=== PATIENT | female | born 1975 | race Caucasian/White ===

== ENCOUNTER 2020-09-09 14:53 | Outpatient (REF) | payer OTHER, MEDICARE, SELFPAY | END 2020-09-09 14:54 | disposition home or self-care (01) | LOC: HO.LAB 14:53 | PROVIDERS: PCP Internal Medicine; Visit Provider Obstetrics & Gynecology | DX: R35.0 Frequency of micturition (principal) | CPT/HCPCS: 81003; 87086 ==

== ENCOUNTER → 2020-11-06 12:48 | Outpatient (BNVA) | payer OTHER, MEDICARE, SELFPAY | PROVIDERS: PCP Internal Medicine; Visit Provider Advanced Practice Midwife ==

== ENCOUNTER 2021-01-29 08:38 | Outpatient (REF) | payer OTHER, MEDICARE, SELFPAY ==
--- NOTE | ~2021-01-29 | MM_ITS ---
EXAMINATION: MM SCREENING DIGITAL BREAST TOMOSYNTHESIS, BILATERAL CLINICAL INFORMATION: Screening. Asymptomatic. The lifetime risk of breast cancer based on the Tyrer-Cuzick Model is 15%. COMPARISON: Mammography: November 13, 2019 and studies dating back to September 23, 2011 TECHNIQUE: Digital breast tomosynthesis is performed in both the craniocaudal and mediolateral oblique views along with computer-aided detection (CAD). Synthesized 2D images are generated from the tomosynthesis. FINDINGS: There are scattered areas of fibroglandular density (ACR BI-RADS breast composition Category b). There are no significant masses, abnormal calcifications, or other abnormalities. MM/MM tomosynthesis screening BI IMPRESSION: There are no significant changes from prior study. ASSESSMENT: BI-RADS 1: Negative RECOMMENDATION: Routine annual mammography screening. This patient's information was entered into a reminder system with a target due date for their next mammogram.
== END 2021-01-29 08:39 | disposition home or self-care (01) ==
LOC: HO.MAMMO 08:38
PROVIDERS: Visit Provider Advanced Practice Midwife
DX: Z12.31 Encounter for screening mammogram for malignant neoplasm of breast (principal)
CPT/HCPCS: 77063; 77067

== ENCOUNTER 2021-06-17 10:43 | Outpatient (REF) | payer OTHER, MEDICARE, SELFPAY ==
[2021-06-17 13:49] LABS: MANUAL DIFF FLAG NO
[2021-06-17 14:05] LABS: Basophils Absolute Auto 0.1 X10*3/uL (0.0-0.2); Basophils Percent Auto 1.1 % (0-2); Eosinophils Absolute Auto 0.1 X10*3/uL (0.0-0.4); Eosinophils Percent Auto 1.9 % (0-4); Hematocrit 43.1 % (37-47); Hemoglobin 14.6 g/dl (12.0-16.0); Imm Gran Abs Auto 0.04 X10*3/uL (0.00-0.03); Imm Gran Pct Auto 0.6 % (0.0-0.4); Lymphocytes Absolute Auto 2.3 X10*3/uL (1.2-4.9); Mean Corpuscular HGB Conc 33.9 g/dl (31.0-35.0); Mean Corpuscular Hemoglobin 31.4 pg (27.0-33.0); Mean Corpuscular Volume 92.7 fL (80-98); Mean Platelet Volume 10.9 fL (9.4-12.3); Monocytes Absolute Auto 0.8 X10*3/uL (0.1-1.2); Monocytes Percent Auto 11.2 % (2-11); Neutrophils Absolute Auto 3.9 X10*3/uL (2.0-8.3); Neutrophils Percent Auto 54.2 % (45-73); Platelet Count 299 X10*3/uL (160-400); Red Blood Count 4.65 X10*6/uL (4.20-5.50); Red Cell Distribution Width 12.4 % (11.0-16.0); White Blood Count 7.3 X10*3/uL (4.8-10.8)
[2021-06-17 14:17] LABS: Alanine Aminotransferase 54 U/L (0-31); Albumin Level 4.4 g/dL (3.5-5.0); Alkaline Phosphatase 57 U/L (39-117); Anion Gap 12 (12-20); Aspartate Amino Transferase 30 U/L (5-31); Bilirubin Total 0.5 mg/dL (0.0-1.0); Blood Urea Nitrogen 13 mg/dL (9-16); Calcium 9.3 mg/dL (8.4-10.2); Carbon Dioxide 25 mmol/L (22-29); Chloride 108 mmol/L (96-108); Cholesterol 237 mg/dL; Estimated Glomerular Filt Rate > 60; Glucose Random 86 mg/dL (60-115); HDL Cholesterol 43 mg/dL; LDL Cholesterol Calculated 132 mg/dl; Potassium 4.3 mmol/L (3.3-5.1); Sodium 141 mmol/L (135-145); Total Protein 6.7 g/dL (6.5-8.0); Triglycerides 313 mg/dL
[2021-06-17 14:38] LABS: TSH reflex Free T4 0.55 uIU/mL (0.32-4.0)
[2021-06-17 15:08] LABS: Reflex LDLD? No
[2021-06-17 15:10] LABS: Folate > 20.0 ng/mL (> or = 4.0); Vitamin B12 1277 pg/mL (200-900)
== END 2021-06-17 10:44 | disposition home or self-care (01) ==
LOC: HO.HMGCLDS 10:43
PROVIDERS: PCP Internal Medicine; Visit Provider Psychiatry & Neurology Neurology
DX: G35 Multiple sclerosis (principal)
CPT/HCPCS: 36415; 80053; 80061; 82607; 82746; 84443; 85025

== ENCOUNTER → 2021-12-13 13:41 | Outpatient (BNVA) | payer OTHER, MEDICARE, SELFPAY | PROVIDERS: PCP Internal Medicine; Visit Provider Advanced Practice Midwife | DX: Z13.89 Encounter for screening for other disorder (principal) ==

== ENCOUNTER 2022-02-11 09:44 | Outpatient (REF) | payer OTHER, MEDICARE, SELFPAY ==
--- NOTE | ~2022-02-11 | MM_ITS ---
EXAMINATION: MM SCREENING DIGITAL BREAST TOMOSYNTHESIS, BILATERAL CLINICAL INFORMATION: Screening. Asymptomatic. COMPARISON: Mammography: January 29, 2021 and studies dating back to September 23, 2011 TECHNIQUE: Digital breast tomosynthesis is performed in both the craniocaudal and mediolateral oblique views along with computer-aided detection (CAD). Synthesized 2D images are generated from the tomosynthesis. FINDINGS: There are scattered areas of fibroglandular density (ACR BI-RADS breast composition Category b). There are no new significant masses, abnormal calcifications, or other abnormalities. There are 2 circumscribed somewhat lobular densities again seen within the lateral and central aspects of the right breast which are unchanged from study of October 12, 2018. MM/MM tomosynthesis screening BI IMPRESSION: There are no significant changes from prior study. ASSESSMENT: BI-RADS 2: Benign RECOMMENDATION: Routine annual mammography screening. This patient's information was entered into a reminder system with a target due date for their next mammogram.
== END 2022-02-11 09:45 | disposition home or self-care (01) ==
LOC: HO.MAMMO 09:44
PROVIDERS: Visit Provider Advanced Practice Midwife
DX: Z12.31 Encounter for screening mammogram for malignant neoplasm of breast (principal)
CPT/HCPCS: 77063; 77067

== ENCOUNTER 2023-04-14 13:40 | Outpatient (AMB) | payer OTHER, MEDICARE, SELFPAY ==
--- NOTE | 2023-04-14 13:44 | A.OFFVIS_ITS ---
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 ? vaginal wart The patient agreed to use of a medical laboratory specialist during this encounter. Scribed for TODD Vallejo by Latosha Garcia medical laboratory specialist, on 04/14/2023 at 2:15 pm EST Director Of Religious Life Required: No Information Interpreted: non-clinical & clinical Elementary School Teacher'S Aide: Elementary School Teacher'S Aide Present (Leanne KOHLI) Accompanied by: Self / Same As Patient Allergies latex [LATEX] Allergy (Intermediate, Verified 04/14/23 13:49) RASH interferon magaly-2a,recomb. Allergy (Unknown, Verified 04/14/23 13:49) Hives modafinil [From Provigil] Allergy (Unknown, Verified 04/14/23 13:49) UNKNOWN TAPE,CLOTH Allergy (Unknown, Uncoded 04/14/23 13:49) RASH Post menopausal: Yes HPI HPI Comments History of Present Illness Details She is a postmenopausal woman presenting for annual exam. She attempts to eat healthy and stay active. Currently sexually active with . Reports a vaginal lump recently. Has not had a menses in over 3 years. Admits to hot flashes. Takes Black Cohosh with relief. Denies vaginal itching and irritation. Last pap smear 2019. Last mammogram 02/11/22. [facility] Medical History Anxiety, generalized Multiple sclerosis Surgical History History of appendectomy History of tubal ligation Family History Father No problems noted. Mother No problems noted. Son No problems noted. Maternal Grandmother Breast cancer Social History Household Members: Spouse Housing: House Alcohol intake: never Patient Tobacco Use Status: Never used Tobacco Current occupational status: disabled Sexual orientation: Straight/Heterosexual Gender identity: Female Female Reproductive History Menstrual Age of Menarche: 12 Menopause type: natural Total pregnancies: 1 Full term: 1 Number of Living Children: 1 Date of last pap smear: 10/11/19 Date of Mammogram: 02/11/22 Review of Systems Const All systems reviewed & are unremarkable except as noted in HPI and below Physical Exam Vital Signs: Last Vital Signs BP 110/70 04/14/23 13:48 BMI result Body Mass Index 22.3 Const General: cooperative, healthy appearing, no acute distress, well developed and alert Orientation/consciousness: patient oriented x3 HEENT Head: Yes normal to inspection Eyes General: appearance normal, both eyes and all related structures Neck Neck: Yes normal visual inspection Thyroid: Thyroid normal Chest Chest palpation & inspection: normal inspection of the chest Breast/axilla inspection: normal inspection of the breasts (no puckering, d impling, peau de orange, retraction, discharge, masses) and Other (fungal rash under breasts- uses anti-fungal cream prn) Breast/axilla palpation: normal palpation of the breasts Resp Effort & Inspection: normal respiratory effort GI Inspection: Yes normal to inspection Palpation (GI): Soft to palpation Rectal Exam - Female: deferred General: Yes bladder normal to palpation External Female Exam: normal external appearance, normal appearance of the urethra and other (2 mm sebaceous gland cyst on left labia. skin tags x3 vulva/gluteal area) Speculum Exam - Vagina: normal appearance of the vagina, normal palpation and normal vaginal discharge Speculum Exam - Cervix: normal appearance of the cervix and normal palpation Bimanual exam- vagina & uterus: normal bimanual exam, normal palpation, uterine size normal, bladder normal to palpation and normal palpation Bimanual Exam- Adnexa, other: normal adnexae and no masses Skin General skin exam: no rashes or lesions noted Neuro General: patient oriented x3 Cognition (Neuro): normal cognition Extrem General: Yes normal to inspection Psych Attitude: cooperative Thought process: Normal thought process present Assessment & Plan Assessment & Plan (1) Encounter for well woman exam: Code(s): Z01.419 - Encounter for gynecological examination (general) (routine) without abnormal findings Plan: Discussed: Current recommendations for pap smears per ASCCP guidelines. Breast awareness and periodic self breast exams. Encouraged yearly mammograms. Maintaining a healthy lifestyle including a well balanced diet including Calcium and Vitamin D and routine exercise. Contact office with any PMB. Counseled on sebaceous glands. Encouraged patient portal. All of her questions and concerns were addressed to the best of my ability. RTO in one year for AG. Orders: Orders MM tomosynthesis screening BI Today Z12.31 - Encounter for screening mammogram for malignant neoplasm of breast Coding Level of Care Code Est Pt Prev Care 40-64y(34419) Diagnoses Encounter for well woman exam Z01.419
[2023-04-14 13:48] VITALS: BP 110/70; BMI 22.3
== END 2023-04-14 14:23 | disposition home or self-care (01) ==
LOC: HO.HWS 13:40
PROVIDERS: PCP Internal Medicine; Visit Provider Advanced Practice Midwife
DX: Z01.419 Encounter for gynecological examination (general) (routine) without abnormal findings (principal)
CPT/HCPCS: 99396

== ENCOUNTER → 2023-04-14 13:40 | Outpatient (BNVA) | payer OTHER, MEDICARE, SELFPAY | PROVIDERS: PCP Internal Medicine; Visit Provider Advanced Practice Midwife ==

== ENCOUNTER 2023-08-17 12:49 | Outpatient (REF) | payer OTHER, MEDICARE, SELFPAY ==
--- NOTE | ~2023-08-17 | MM_ITS ---
EXAMINATION: MM SCREENING DIGITAL BREAST TOMOSYNTHESIS, BILATERAL CLINICAL INFORMATION: Screening. Asymptomatic. COMPARISON: Mammography: 02/11/2022, 01/29/2021, 12/14/2019, 10/31/2018, 10/12/2018, 06/29/2016, targeted right breast ultrasound 11/28/2018. TECHNIQUE: Digital breast tomosynthesis is performed in both the craniocaudal and mediolateral oblique views along with computer-aided detection (CAD). Synthesized 2D images are generated from the tomosynthesis. An additional right MLO with better anterior compression was obtained. FINDINGS: There are scattered areas of fibroglandular density (ACR BI-RADS breast composition Category b). Per the technologist note, the patient has MS and involuntary movements. This caused blurring on the right MLO projections. There are stable oval circumscribed parenchymal nodules in the right breast retroareolar region and just inferior to the nipple line. These are unchanged and benign. There are no suspicious masses, suspicious grouped calcifications, or areas of architectural distortion in either breast. The parenchymal pattern is stable from prior exams. MM/MM tomosynthesis screening BI IMPRESSION: No mammographic evidence of malignancy. Somewhat motion limited. Stable benign findings. ASSESSMENT: BI-RADS BI-RADS 2 - Benign Findings RECOMMENDATION: Routine annual mammography screening. 1 year F/U This examination should not preclude the clinical evaluation of a suspicious palpable abnormality. This patient's information was entered into a reminder system with a target due date for their next mammogram.
== END 2023-08-17 12:50 | disposition home or self-care (01) ==
LOC: HO.MAMMO 12:49
PROVIDERS: Visit Provider Advanced Practice Midwife
DX: Z12.31 Encounter for screening mammogram for malignant neoplasm of breast (principal)
CPT/HCPCS: 77063; 77067

== ENCOUNTER → 2023-08-17 13:30 | Outpatient (BNV) | payer OTHER, MEDICARE, SELFPAY | PROVIDERS: Visit Provider Radiology Diagnostic Radiology | DX: Z12.31 Encounter for screening mammogram for malignant neoplasm of breast (principal) | CPT/HCPCS: 77063; 77067 ==

== ENCOUNTER 2024-03-20 10:09 | Outpatient (REF) | payer OTHER, MEDICARE, SELFPAY ==
[2024-03-20 13:10] LABS: MANUAL DIFF FLAG NO
[2024-03-20 13:25] LABS: Basophils Absolute Auto 0.2 X10*3/uL (0.0-0.2); Basophils Percent Auto 1.5 % (0-2); Eosinophils Absolute Auto 0.2 X10*3/uL (0.0-0.4); Eosinophils Percent Auto 1.6 % (0-4); Hematocrit 45.7 % (37.0-47.0); Hemoglobin 15.5 g/dl (12.0-16.0); Imm Gran Abs Auto 0.11 X10*3/uL (0.00-0.03); Lymphocytes Absolute Auto 2.9 X10*3/uL (1.2-4.9); Lymphocytes Percent Auto 27.2 % (20-40); Mean Corpuscular HGB Conc 33.9 g/dl (31.0-35.0); Mean Corpuscular Volume 94.4 fL (80.0-98.0); Mean Platelet Volume 10.3 fL (9.4-12.3); Monocytes Percent Auto 9.2 % (2-11); Neutrophils Absolute Auto 6.3 x10*3/uL (2.0-8.3); Neutrophils Percent Auto 59.5 % (45-73); Platelet Count 364 X10*3/uL (160-400); Red Blood Count 4.84 X10*6/uL (4.20-5.50); Red Cell Distribution Width 12.8 % (11.0-16.0); White Blood Count 10.5 X10*3/uL (4.8-10.8)
[2024-03-20 14:13] LABS: TSH reflex Free T4 1.61 uIU/mL (0.32-4.0)
[2024-03-20 14:14] LABS: Anion Gap 15 (12-20)
[2024-03-20 14:19] LABS: Alanine Aminotransferase 40 U/L (0-31); Albumin Level 4.5 g/dL (3.5-5.0); Alkaline Phosphatase 60 U/L (39-117); Aspartate Amino Transferase 24 U/L (5-31); Bilirubin Total 0.6 mg/dL (0.0-1.0); Blood Urea Nitrogen 16 mg/dL (9-16); Calcium 9.5 mg/dL (8.4-10.2); Carbon Dioxide 25 mmol/L (22-29); Chloride 105 mmol/L (96-108); Cholesterol 245 mg/dL (<200); Estimated Glomerular Filt Rate > 60; Glucose Random 89 mg/dL (60-115); HDL Cholesterol 49 mg/dL (>40); LDL Cholesterol Calculated 148 mg/dL (<100); Potassium 3.9 mmol/L (3.3-5.1); Sodium 141 mmol/L (135-145); Triglycerides 244 mg/dL (<150)
[2024-03-20 15:38] LABS: Reflex LDLD? No
== END 2024-03-20 10:10 | disposition home or self-care (01) ==
LOC: HO.HMGCLDS 10:09
PROVIDERS: PCP Internal Medicine; Visit Provider Psychiatry & Neurology Neurology
DX: G35 Multiple sclerosis (principal)
CPT/HCPCS: 36415; 80053; 80061; 84443; 85025

== ENCOUNTER 2024-09-16 11:22 | Outpatient (REF) | payer OTHER, MEDICARE, SELFPAY ==
--- NOTE | ~2024-09-16 | MM_ITS ---
EXAMINATION: MM SCREENING DIGITAL BREAST TOMOSYNTHESIS, BILATERAL CLINICAL INFORMATION: Screening. Asymptomatic. COMPARISON: Mammography: Comparison is made with available priors TECHNIQUE: Digital breast mammography with tomosynthesis is performed in both the craniocaudal and mediolateral oblique views along with computer-aided detection (CAD). FINDINGS: There are scattered areas of fibroglandular density (ACR BI-RADS breast composition Category b). Bilateral circumscribed oval masses are stable. There are no significant masses, abnormal calcifications, or other abnormalities. MM/MM tomosynthesis screening BI IMPRESSION: No mammographic evidence of malignancy. ASSESSMENT: BI-RADS BI-RADS 2 - Benign Findings RECOMMENDATION: Routine annual mammography screening. 1 year F/U This examination should not preclude the clinical evaluation of a suspicious palpable abnormality. This patient's information was entered into a reminder system with a target due date for their next mammogram. Electronically signed by: Shonna Webster DO 09/22/2024 05:57 PM FELICITA
--- OUTSIDE RECORDS SUMMARY | 2024-09-16 13:08 | XMS_ITS | Data Portability ---
Author Organization [place] - [facility], [address] Address [address] [place] [address] Assessment No assessment recorded. Plan of Treatment Reminders Order Date Submit Date Provider Last Modified By Organization Details Last Modified Time Details Appointments None recorded. Lab None recorded. Referral None recorded. Procedures None recorded. Surgeries None recorded. Imaging None recorded. Medication Orders Augmentin 875 mg-125 mg tablet 2023 024 [id number], [address], [place], [address], 12:39:08 Patient TargetsNo targets recorded. Patient Instructions Encounter Date Encounter Id Patient Instructions Last Modified By Organization Details Last Modified Time 05/29/2024 [id number] - Use the medications prescribed. - Decongestants if tolerated. - Recommend recheck if fever develops or no improvement in 7-10 days. - I recommend having your ear rechecked in in 2 weeks with your primary provider to verify infection has resolved. -.Use a cool mist humidifier in the room that you sleep to add moisture to the air, which should soothe the airways and help loosen any mucus that may be present. -Call 911 or proceed to nearest Emergency Department if you develop shortness of breath, chest pain, severe headache or other symptoms that concern you. Not available 05/29/2024 12:39:20 Reason for Referral None Reported. Medical Equipment None Reported. Allergies Allergen ID Allergen Name Allergen Category Reaction Reaction Severity Criticality Documentation Date Start Date Code Code System Note Provider Name and Address Organization Details Recorded Time 826192 Provigil medicatio n Not available Not available Not available 05/29/2024 47015 4 RxNorm Damaris Ngonijolly hickman [place] - [facility] 4 12:19:44 Medications Name Sig Start Date Stop Date Status Note LastModified by Organization Details LastModified Time Augmentin 875 mg-125 mg tablet Take 1 tablet every 12 hours by oral route for 7 days. 024 active Not Available Not Available Not Avai lable escitalopram 20 mg tablet TAKE 1 TABLET BY MOUTH EVERY DAY active Not Available Not Available No t Available Vitals Date Recorded Body height Body mass index (BMI) Body weight Respiratory rate Oxygen saturation Oxygen saturation in Arterial blood by Pulse oximetry Heart rate Provider Name and Address Organization Details Last Updated DateTime 4 165.1 cm 25 kg/m2 61697.8 6 g 18 /min 97 % 97 % 95 /min Damaris Dominguez [place] - [facility] 4 12:16:16 Social History Question Answer Notes LastModified by Organizat ion Details LastModified Time Tobacco Smoking Status Never Smoker Damaris hickman [place] - [facility] 05/29/2024 12:17:30 What Is Your Level Of Alcohol Consumption? None Information not available 05/29/2024 Have You Had A Flu Shot This Season? No Information not available 05/29/2024 If No, Would You Like A Flu Shot Today? No Information not available 05/29/2024 What Is Your Relationship Status? Information not available 05/29/2024 Do You Use Any Illicit Or Recreational Drugs? No Information not available 05/29/2024 Have You Recently Traveled Abroad? No Information not available 05/29/2024 Do You Or Have You Ever Used Any Other Forms Of Tobacco Or Nicotine? No Information not available 05/29/2024 Sex: Unknown Functional Status None recorded. Mental Status None recorded. Family History Nothing Reported. Medical History No medical history recorded. Gynecological History Statement/Question Response Is there any chance of ? No Obstetrics History GPAL:G 0 P 0 0 0 0 Past Encounters Encounter ID Performer Location Encounter Start Date Encounter Closed Date Diagnosis/Indication Diagnosis SNOMED-CT Code Diagnosis ICD10 Code Diagnosis Note [id number] [address] [place] [address] 05/25/2021 08:02:48 05/25/2021 08:40:22 [id number] [address] [place] [address] 07/24/2020 17:11:41 07/24/2020 19:26:45 [id number] [address] [place] [address] 09/29/2019 08:43:37 09/29/2019 09:39:58 [id number] [place] [address] 06/11/2018 16:13:27 06/11/2018 17:36:34 [id number] [address] [place] [address] 10/27/2020 09:57:45 10/27/2020 11:52:47 [id number] EDY TERESA [address] [place] [address] 05/29/2024 11:54:50 05/29/2024 12:40:51 Acute left otitis media [id number] H66.92 Health Concerns Section Related Observation LastModified by Organization Detai ls LastModified Time None Recorded Concern Status LastModified by Organization Details LastModified Time None Recorded Advance Directives Directive None Recorded Payers Encounter Date Sequence Insurance Name Policy Number Policy Bowen Covered Member ID Bowen Member ID Guarantor Name 09/29/2019 1 [facility] [id number] 1 Maria Esther Tosha Solorzano [id number] Maria Esther Kathy Solorzano 09/29/2019 2 [place] [employer] Maria Esther Solorzano [id number] Maria Estherkavon Solorzano 07/24/2020 1 [facility] [id number] 1 Maria Esther Tosha Solorzano [id number] Maria Esther Kathy Solorzano 07/24/2020 2 [place] [employer] Maria Esther Solorzano [id number] Maria Esther Solorzano 10/27/2020 1 [facility] [id number] 1 Maria Esther Martinezn [id number] Maria Esther Chavez Solorzano 10/27/2020 2 [place] [employer] Maria Esther Solorzano [id number] Maria Esther Chavez Solorzano 05/25/2021 1 [facility] [id number] 1 Maria Esther Chavez Solorzano [id number] Maria Esther Chavez Solorzano 05/25/2021 2 [place] [employer] Maria Esther Solorzano [id number] Maria Esther Chavez Solorzano 05/29/2024 1 [facility] [id number] 1 Maria Esther Chavez Solorzano [id number] Maria Esther Chavez Solorzano 05/29/2024 2 [place] [facility] Maria Esther Solorzano [id number] Maria Esther Solorzano Notes Date Note Type Note Provider Name and Address Organization Details Recorded Time 05/29/2024 text/html Ear Pain Brief HPIReported bypatient.Notes:49 y.o female pt presents with left ear pain with decreased hearing and some discharge. Pt recently was on a trip when it started. She has some mild drainage mixed with blood. She denies fever, headache, or neck stiffness. EDY TERESA [address] [place], [address], [place] - [facility] 05/31/2024 15:39:26 OBGyn Episode No OBEpisode recorded.
== END 2024-09-16 11:23 | disposition home or self-care (01) ==
LOC: HO.MAMMO 11:22
PROVIDERS: PCP Internal Medicine; Visit Provider Internal Medicine
DX: Z12.31 Encounter for screening mammogram for malignant neoplasm of breast (principal)
CPT/HCPCS: 77063; 77067

== ENCOUNTER → 2024-09-16 12:15 | Outpatient (BNV) | payer OTHER, MEDICARE, SELFPAY | PROVIDERS: PCP Internal Medicine; Visit Provider Internal Medicine | DX: Z12.31 Encounter for screening mammogram for malignant neoplasm of breast (principal) | CPT/HCPCS: 77063; 77067 ==